=== PATIENT | male | born 1970 | race Caucasian/White ===

== ENCOUNTER 2024-04-17 20:15 | Inpatient (IN) | payer OTHER ==
[2024-04-17] VITALS (17 sets, daily range): BP systolic 69–112; BP diastolic 42–63
[~2024-04-17] VITALS: Ht 172.7 cm; Wt 92.8 kg
[2024-04-17] MEDS ORDERED: SODIUM CHLORIDE 0.9% 1,000 ML IV ONE ×2 (20:40→22:34)
[2024-04-17 20:56] LABS: BASO% 0.2 % (0-3); EOS% 3.1 % (0-8); HEMATOCRIT 33.7 % (39.0-50.0); HEMOGLOBIN 12.2 g/dl (14.0-18.0); IMMATURE GRANULOCYTES 0.6 % (0.0-5.0); LYMPH% 20.3 % (15-41); MEAN CELL VOLUME 85.3 fL CALC (80.0-100.0); MEAN CORPUSCULAR HGB 30.9 pG CALC (26.0-32.0); MEAN CORPUSCULAR HGB CONC 36.2 g/dL CAL (32.0-36.0); MONO% 8.2 % (2-13); NEUT# 9.39 thou/uL (1.82-7.42); NEUT% 67.6 % (42-76); RED BLOOD COUNT 3.95 mill/uL (4.70-6.10); RED CELL DISTRI WIDTH 12.1 % (11.5-15.5)
[2024-04-17] MEDS ORDERED: METFORMIN500 M2 PO (20:56)
[2024-04-17] MEDS ORDERED: LISINOPRIL2.5 MG PO (20:57)
[2024-04-17] MEDS ORDERED: AMARYL1 MG PO (20:57)
[2024-04-17] MEDS ORDERED: HYDROCHLOROT XX (20:57)
[2024-04-17] MEDS ORDERED: LOPRESSOR25 M1 PO (20:58)
[2024-04-17] MEDS ORDERED: PRAVASTATIN80 MG PO (20:58)
[2024-04-17] MEDS ORDERED: BAYER ASPIRIN E81 MG PO (20:59)
[2024-04-17] MEDS ORDERED: ACID CONTROL MA20 MG PO (20:59)
[2024-04-17] MEDS ORDERED: CLONIDINE0.2 MG PO (21:00)
[2024-04-17 21:09] LABS: ALBUMIN 3.9 g/dL (3.2-5.0); ALKALINE PHOSPHATASE 39 u/l (38-126); ANION GAP 12 (6-22 (CALC)); BILIRUBIN, TOTAL 0.4 mg/dL (0.2-1.3); BUN 10 mg/dL (9-20); BUN/CREATININE RATIO 12 (12-20 (CALC)); CARBON DIOXIDE 20 mmol/l (22-30); CHLORIDE 97 mmol/l (95-108); CREATININE 0.8 mg/dL (0.7-1.3); ESTIMATED GFR 106 ML/MIN (>=90 (CALC)); POTASSIUM 3.7 mmol/l (3.5-5.1); SGOT/AST 29 u/l (17-59); SODIUM 126 mmol/l (137-146); TOTAL PROTEIN 6.7 g/dL (6.3-8.2)
[2024-04-18] VITALS (90 sets, daily range): BP systolic 81–154; BP diastolic 47–88
[2024-04-18] MEDS ORDERED: NOREPINEPHRINE BITARTRATE 4 MG in DEXTROSE 5% 250 ML IV ONE (00:10)
[2024-04-18] MEDS ORDERED: SODIUM CHLORIDE 0.9% 500 ML IV ONE (00:10)
[2024-04-18] MEDS ORDERED: Diph, Acellular Pertussis, Tet 0.5 ML/VIAL (Tdap) SDV IM ONE (01:15)
[2024-04-18] MEDS ORDERED: SODIUM CHLORIDE 0.9% 1,000 ML IV PRN (01:40)
[2024-04-18] MEDS ORDERED: MAGNESIUM HYDROXIDE 30 ML UDC PO PRN (01:40)
[2024-04-18] MEDS ORDERED: ACETAMINOPHEN 325 MG/TAB PO PRN (01:40)
[2024-04-18 06:55] LABS: URINE BILIRUBIN - DIPSTICK Negative (NEGATIVE); URINE BLOOD DIPSTICK Trace-lysed (NEGATIVE); URINE COLOR Yellow; URINE GLUCOSE - DIPSTICK 100 mg/dL (NEGATIVE); URINE KETONE 80 mg/dL (NEGATIVE); URINE LEUK ESTERASE Negative (NEGATIVE); URINE NITRITE - DIPSTICK Negative (Negative); URINE PROTEIN - DIPSTICK Negative (NEG-TRACE); URINE UROBILINOGEN - DIPSTICK 0.2 E.U./dL (0.2)
[2024-04-18] MEDS ORDERED: DEXTROSE 250 ML IV PRN (09:05)
[2024-04-18] MEDS ORDERED: HYDROcodone 5 MG/Acetaminophen 325 MG/COMBO PO PRN (09:05)
[2024-04-18 09:16] LABS: IMMATURE GRANULOCYTES 0.4 % (0.0-5.0); MEAN CELL VOLUME 86.6 fL CALC (80.0-100.0); MEAN CORPUSCULAR HGB 30.7 pG CALC (26.0-32.0); MEAN CORPUSCULAR HGB CONC 35.5 g/dL CAL (32.0-36.0); MONO% 7.6 % (2-13); NEUT# 9.25 thou/uL (1.82-7.42); RED BLOOD COUNT 2.9 mill/uL (4.70-6.10); RED CELL DISTRI WIDTH 12.5 % (11.5-15.5)
[2024-04-18 09:17] LABS: HEMATOCRIT 25.1 % (39.0-50.0); HEMOGLOBIN 8.9 g/dl (14.0-18.0)
[2024-04-18 09:28] LABS: ALBUMIN 3.4 g/dL (3.2-5.0); CREATININE 0.7 mg/dL (0.7-1.3); POTASSIUM 4.3 mmol/l (3.5-5.1)
[2024-04-18 09:29] LABS: BILIRUBIN, TOTAL 0.7 mg/dL (0.2-1.3)
[2024-04-18] MEDS ORDERED: PIPERACILLIN Sodium-Tazobactam 3.375 GM in SODIUM CHLORIDE 0.9% 100 ML IV SCH (10:00)
[2024-04-18] MEDS ORDERED: NOREPINEPHRINE BITARTRATE 4 MG in SODIUM CHLORIDE 0.9% 250 ML IV PRN (10:15)
[2024-04-18] MEDS ORDERED: HYDROmorphone HCL 2 MG/AMP IV PRN (10:35)
[2024-04-18] MEDS ORDERED: SODIUM CHLORIDE 0.9% 10 ML SYR IV PRN (10:40)
[2024-04-18] MEDS ORDERED: INSULIN LISPRO 100 UNITS/ML ML SC SCH (11:00)
[2024-04-18] MEDS ORDERED: HYDROmorphone HCL 2 MG/AMP IV SCH (11:30)
[2024-04-18 12:47] LABS: HEMATOCRIT 21.4 % (39.0-50.0); HEMOGLOBIN 7.7 g/dl (14.0-18.0)
[2024-04-18] MEDS ORDERED: SODIUM CHLORIDE 0.9% 500 ML IV PRN (13:00)
[2024-04-18] MEDS ORDERED: SODIUM CHLORIDE 0.9% 10 ML SYR IV SCH (14:00)
[2024-04-18] MEDS ORDERED: ENOXAPARIN SODIUM 40 MG/0.4 ML SYR SC SCH (21:00)
== END 2024-04-18 15:30 | disposition short-term general hospital (02) | DRG 814 ==
LOC: ED 20:15 → ED-I 04-18 00:10 → ED 04-18 00:32 → ICU 04-18 00:33
PROVIDERS: Emergency Medicine; ADMIT Internal Medicine; ATTEND Internal Medicine
PROC: 06HY33Z Insertion of Infusion Device into Lower Vein, Percutaneous Approach (ICD-10-PCS; principal; 2024-04-18)
PROC: 3E033XZ Introduction of Vasopressor into Peripheral Vein, Percutaneous Approach (ICD-10-PCS; 2024-04-18)
PROC: 30243K1 Transfusion of Nonautologous Frozen Plasma into Central Vein, Percutaneous Approach (ICD-10-PCS; 2024-04-18)
PROC: 30243N1 Transfusion of Nonautologous Red Blood Cells into Central Vein, Percutaneous Approach (ICD-10-PCS; 2024-04-18)
PROC: 30243N1 Transfusion of Nonautologous Red Blood Cells into Central Vein, Percutaneous Approach (ICD-10-PCS; 2024-04-18)
PROC: 30243N1 Transfusion of Nonautologous Red Blood Cells into Central Vein, Percutaneous Approach (ICD-10-PCS; 2024-04-18)
DX: S36.032A Major laceration of spleen, initial encounter (principal); T79.4XXA Traumatic shock, initial encounter; E87.1 Hypo-osmolality and hyponatremia; D62 Acute posthemorrhagic anemia; R65.10 Systemic inflammatory response syndrome (SIRS) of non-infectious origin without acute organ dysfunction; I95.2 Hypotension due to drugs; T46.7X5A Adverse effect of peripheral vasodilators, initial encounter; T46.4X5A Adverse effect of angiotensin-converting-enzyme inhibitors, initial encounter; T50.2X5A Adverse effect of carbonic-anhydrase inhibitors, benzothiadiazides and other diuretics, initial encounter; I10 Essential (primary) hypertension; E11.9 Type 2 diabetes mellitus without complications; E78.5 Hyperlipidemia, unspecified; S00.01XA Abrasion of scalp, initial encounter; I25.10 Atherosclerotic heart disease of native coronary artery without angina pectoris; K21.9 Gastro-esophageal reflux disease without esophagitis; I25.2 Old myocardial infarction; W19.XXXA Unspecified fall, initial encounter; Y92.89 Other specified places as the place of occurrence of the external cause; Z95.5 Presence of coronary angioplasty implant and graft; Z79.84 Long term (current) use of oral hypoglycemic drugs
CPT/HCPCS: P9016